=== PATIENT | male | born 1960 | race Caucasian/White ===

== ENCOUNTER 2016-09-09 19:07 | Emergency (ER) | payer MEDICAID ==
[~2016-09-09] VITALS: Ht 175.3 cm; Wt 82.4 kg
[2016-09-09 19:18] VITALS: BP 140/50
== END 2016-09-09 21:24 | disposition home or self-care (01) ==
LOC: ED 20:09
DX: L03.317 Cellulitis of buttock (principal); I10 Essential (primary) hypertension
CPT/HCPCS: 76857